=== PATIENT | female | born 1980 | race Caucasian/White ===

== ENCOUNTER 2021-07-20 15:51 | Emergency (ER) | payer OTHER ==
[2021-07-20 19:44] LABS: HEMOGLOBIN 11.7 gm/dl (12.3-15.3); RED BLOOD COUNT 4.14 M/UL (4.00-5.10); WHITE BLOOD COUNT 4.8 K/UL (4.5-11.0)
[2021-07-20 20:04] LABS: BUN/CREATININE RATIO 13 (0-10)
[2021-07-20] MEDS ORDERED: CEPHALEXIN500 M1 PO (21:21)
[2021-07-20] MEDS ORDERED: BACTRIM DS TAB1 EACH PO (21:21)
== END 2021-07-20 23:06 | disposition home or self-care (01) ==
LOC: ER1 15:51
PROVIDERS: Physician Assistant
DX: L03.221 Cellulitis of neck (principal)
CPT/HCPCS: 70490; 80053; 83605; 84703; 85025; 85379; 87040; 96372; 99284; J0696; Q9967